=== PATIENT | male | born 1955 | race Caucasian/White ===

== ENCOUNTER 2017-07-25 10:36 | Inpatient (IN) ==
[2017-07-25] MEDS ORDERED: cefTRIAXone 1,000 MG in Water for inj. (sterile) 20 ML 10 ML IVP ONE (10:47)
[2017-07-25] MEDS ORDERED: Ipratropium/Albuterol Neb 3 ML IH ONE (10:47)
[2017-07-25] MEDS ORDERED: methylPREDNISolone 125 MG/2 ML VIAL IVP ONE (10:47)
--- NOTE | 2017-07-25 10:52 | Emergency Department Note ---
Disposition Clinical Impression: Acute exacerbation of chronic obstructive airways disease, COPD exacerbation Non-healing ulcer of lower leg Qualifiers: Laterality: left Non-pressure ulcer stage: unspecified non-pressure ulcer stage Qualified Code(s): L97.929 - Non-pressure chronic ulcer of unspecified part of left lower leg with unspecified severity Community acquired pneumonia Qualifiers: Laterality: left Lung location: unspecified part of lung Qualified Code(s): J18.9 - Pneumonia, unspecified organism Disposition: Admitted As Inpatient Condition: Good Time of Disposition: 11:40 (Dr Rice) SOB HPI - General Chief Complaint: ED Shortness of Breath/Dyspnea Stated Complaint: edgar Time Seen by Provider: 07/25/17 10:46 Source: patient Mode of arrival: EMS Limitations: no limitations Nursing Notes Reviewed: Yes Vital Signs Reviewed: Yes - History of Present Illness Pt Subjective Complaint: shortness of breath Onset (ago): day(s) (2) Context: other (Respiratory shortness of breath with cough for the last 2 days.) Severity: severe Consistency/Duration: gradually worsening Improves with: oxygen, rest Worsens with: exertion, coughing Known history of: COPD Associated symptoms: Reports: cough, wheezing, sputum production. Denies: chest pain, pain with inspiration, fever, orthopnea, lower extremity pain, polyuria, polydipsia, parasthesias, palpitations, hemoptysis, diaphoresis, nausea/vomiting, syncope, abdominal pain, sense of impending doom Treatment prior to arrival: oxygen, bronchodilator Cough present: Yes Cough Description: Involuntary Cough Frequency: Intermittent Sputum Amount: Moderate Sputum Color: Yellow, Blood Streaked - Related Data Home oxygen amount: 4 liters Home Medications Medication Instructions Recorded Confirmed Albuterol Sulfate [Ventolin Hfa] 2 puff IH Q6H PRN 08/09/16 07/25/17 Furosemide [Lasix] 20 mg PO DAILY 12/03/16 07/25/17 Albuterol Neb [AccuNeb] 0.63 mg IH Q6H PRN 12/31/16 07/25/17 Naproxen [EC-Naprosyn] 500 mg PO BID PRN 12/31/16 07/25/17 OxyCODONE/APAP 7.5/325 [Percocet 1 tab PO Q6H PRN 12/31/16 07/25/17 7.5/325 MG] Oxygen 2 l NS AD 12/31/16 07/25/17 Neurontin 600 mg PO TID 01/01/17 07/25/17 Metoprolol [Lopressor] 25 mg PO DAILY 07/25/17 07/25/17 Previous Rx's Medication Instructions Recorded Guaifenesin [Mucinex] 600 mg PO BID #30 tab.er.12h 03/25/17 Mupirocin [Bactroban Oint] 22 appl TP BID #1 tube 05/08/17 Allergies Allergy/AdvReac Type Severity Reaction Status Date / Time latex Allergy Hives Verified 07/25/17 10:36 All systems ED: reviewed and negative except as stated. Past Medical History - Past Medical History Medical history: Reports: non-contributory Surgical history: Reports: orthopedic, other Psychiatric history: Reports: no psych history - Social History Smoking Status: Current every day smoker Smokeless Tobacco Status: No Alcohol use: Reports: none Drug use: Reports: none Physical Exam - General Limitations: no limitations General appearance: alert, in distress - Head Head exam: atraumatic, normocephalic, normal inspection - Eye Eye exam: Present: normal appearance, PERRL, EOMI - ENT ENT exam: normal exam, normal oropharynx, mucous membranes moist - Neck Neck exam: Present: normal inspection, full ROM, trachea midline - Chest Chest inspection: Present: normal inspection, symmetric chest wall rise - Respiratory Respiratory exam: Present: respiratory distress, prolonged expiratory phase - Expanded Respiratory Exam Location: wheezes: Upper, Lower, decreased breath sounds: Upper, Lower - Cardiovascular Cardiovascular exam: Present: regular rate, normal rhythm, normal heart sounds - Abdominal Exam Abdominal exam: Present: soft, Non-Tender. Absent: tenderness, distention, guarding, rebound, rigidity - Extremities Exam Extremities exam: Present: normal inspection, full ROM, normal capillary refill , pedal edema. Absent: tenderness - Expanded Lower Extremity Exam Lower leg exam: Present: erythema, other (Well-demarcated 3 cm ulcer on the left mid lower leg.) - Neurological Exam Neurological exam: Present: alert, oriented X3 - Skin Skin exam: Present: warm, dry, intact, normal color Course - Consultations Consultation #1: Dr Rice Time: 11:46 Vital Signs Temperature 100.9 F H 07/25/17 10:38 Pulse Rate 89 07/25/17 10:38 Respiratory Rate 16 07/25/17 10:38 Blood Pressure 97/57 07/25/17 10:38 O2 Sat by Pulse Oximetry 93 07/25/17 10:38 Temperature 98.4 F 07/25/17 12:53 Pulse Rate 85 07/25/17 12:53 Respiratory Rate 22 07/25/17 12:53 Blood Pressure 96/63 07/25/17 12:53 O2 Sat by Pulse Oximetry 96 07/25/17 12:53 Oxygen Delivery Oxygen Delivery Venti Mask Shortness of Breath/Dyspnea - Differential Diagnosis Likely: acute exacerbation of chronic obstructive airways disease, congestive heart failure, pneumonia - Medical Records Medical records reviewed: Yes I reviewed the patient's medical records. - Lab Data Result diagrams: 07/25/17 10:59 07/25/17 10:59 Lab Results 07/25/17 07/25/17 07/25/17 Range/Units 10:59 10:59 10:59 WBC 35.2 H* (4.3-11.1) K/mcL RBC 5.26 (4.19-5.50) M/mcL Hgb 14.3 (12.9-16.9) g/dL Hct 43.8 (37.5-50.1) % MCV 83.3 (83.0-100.0) fL MCH 27.2 L (28.0-33.3) pg MCHC 32.6 (31.6-35.5) g/dL RDW 13.6 (11.5-14.5) % Plt Count 201 (140-400) K/mcL MPV 10.7 (9.4-12.4) fL Seg Neutrophils % 70.0 % Band Neutrophils % 22.0 H (0-4) % Lymphocytes % 6.0 % Metamyelocytes % 2.0 H (0) % Neutrophils # 32.4 H (1.6-8.9) K/mcL Lymphocytes # 2.1 (0.6-4.6) K/mcL Platelet Estimate Normal (Normal) Sample Site ABG pH (7.32-7.45) pH Units ABG pCO2 (35-45) mmHg ABG pO2 (85-104) mmHg ABG HCO3 (21-27) mEq/L ABG Total CO2 (20-26) mEq/L ABG O2 Saturation (95-98) % ABG Base Excess (-2 to 3) mEq/L Jason Test O2 Delivery Device Inspired O2 (1-15=lpm [id number]=%) Sodium 133 L (136-145) mEq/L Potassium 4.2 (3.5-5.1) mEq/L Chloride 93 L (98-107) mEq/L Carbon Dioxide 32 H (23-29) mEq/L BUN 18 (8-23) mg/dL Creatinine 1.16 (0.70-1.30) mg/dL Est GFR ( Amer) > 60 (> 60) Est GFR (Non-Af Amer) > 60 (> 60) BUN/Creatinine Ratio 16 (6-26) Glucose 154 H (70-105) mg/dL Calculated Osmolality 281 (280-300) Lactic Acid (0.5-2.2) mmol/L Calcium 8.8 (8.6-10.3) mg/dL B-Natriuretic Peptide 108 H (Less than 100) pg/mL 07/25/17 07/25/17 Range/Units 11:00 11:25 WBC (4.3-11.1) K/mcL RBC (4.19-5.50) M/mcL Hgb (12.9-16.9) g/dL Hct (37.5-50.1) % MCV (83.0-100.0) fL MCH (28.0-33.3) pg MCHC (31.6-35.5) g/dL RDW (11.5-14.5) % Plt Count (140-400) K/mcL MPV (9.4-12.4) fL Seg Neutrophils % % Band Neutrophils % (0-4) % Lymphocytes % % Metamyelocytes % (0) % Neutrophils # (1.6-8.9) K/mcL Lymphocytes # (0.6-4.6) K/mcL Platelet Estimate (Normal) Sample Site R Radial ABG pH 7.40 (7.32-7.45) pH Units ABG pCO2 54 H (35-45) mmHg ABG pO2 87 (85-104) mmHg ABG HCO3 33 H (21-27) mEq/L ABG Total CO2 35 H (20-26) mEq/L ABG O2 Saturation 96 (95-98) % ABG Base Excess 6 H (-2 to 3) mEq/L Jason Test Positive O2 Delivery Device Cannula Inspired O2 8.0 (1-15=lpm [id number]=%) Sodium (136-145) mEq/L Potassium (3.5-5.1) mEq/L Chloride (98-107) mEq/L Carbon Dioxide (23-29) mEq/L BUN (8-23) mg/dL Creatinine (0.70-1.30) mg/dL Est GFR ( Amer) (> 60) Est GFR (Non-Af Amer) (> 60) BUN/Creatinine Ratio (6-26) Glucose (70-105) mg/dL Calculated Osmolality (280-300) Lactic Acid 1.8 (0.5-2.2) mmol/L Calcium (8.6-10.3) mg/dL B-Natriuretic Peptide (Less than 100) pg/mL - Radiology Data Chest X-Ray 07/25/17 10:48 IMPRESSION: Small left pleural effusion along with mild patchy/streaky airspace opacities to the left lower lung zone which may relate to atelectasis or infiltrates. Clinical correlation and continued follow-up suggested. D/ / 07/25/2017 11:08:03 Joshua Schultz MD / Elvira Farias Interpreting Provider: Joshua Schultz MD - EKG Data EKG attestation: Yes I reviewed and interpreted this EKG. Rate: Reports: normal Rhythm: Reports: NSR, PVC's [place]/QRS: Reports: normal When compared to previous EKG there are: no significant changes Interpretation: Reports: normal EKG, unchanged when compared to prior tracing ( date) (12/31/16), nonspecific ST-T wave changes Critical Care Time Critical Care Time: Yes Total Critical Care Time: 45 Attestation: Critical care performed: Time is exclusive of separately billable procedures. Time includes: direct patient care, patient reassessment, coordination of patient care, interpretation of data (laboratory data, radiology data, and respiratory data), review of patient's medical records, medical consultation and documentation of patient care. Procedures included in critical care time: Procedures excluded from critical care time:
[2017-07-25] MEDS ORDERED: Acetaminophen 325 MG TABLET PO ONE (10:53)
[2017-07-25 11:12] LABS: Hematocrit 43.8 % (37.5-50.1); Hemoglobin 14.3 g/dL (12.9-16.9); Mean Corpuscular HGB Conc 32.6 g/dL (31.6-35.5); Mean Corpuscular Hemoglobin 27.2 pg (28.0-33.3); Mean Corpuscular Volume 83.3 fL (83.0-100.0); Mean Platelet Volume 10.7 fL (9.4-12.4); Platelet Count 201 K/mcL (140-400); Red Blood Count 5.26 M/mcL (4.19-5.50); Red Cell Distribution Width 13.6 % (11.5-14.5)
[2017-07-25 11:28] LABS: BUN/Creatinine Ratio 16 (6-26); Blood Urea Nitrogen 18 mg/dL (8-23); Calcium 8.8 mg/dL (8.6-10.3); Carbon Dioxide 32 mEq/L (23-29); Chloride 93 mEq/L (98-107); Glucose 154 mg/dL (70-105); Osmolality,Calculated 281 (280-300); Potassium 4.2 mEq/L (3.5-5.1); Sodium 133 mEq/L (136-145); eGFR For African Americans > 60 (> 60); eGFR For Non-African Americans > 60 (> 60)
[2017-07-25 11:29] LABS: ABG Base Excess 6 mEq/L (-2 to 3); ABG HCO3 33 mEq/L (21-27); ABG Oxygen Saturation 96 % (95-98); ABG PCO2 54 mmHg (35-45); ABG PO2 87 mmHg (85-104); ABG TCO2 35 mEq/L (20-26)
[2017-07-25] MEDS ORDERED: Benzonatate 100 MG CAPSULE PO STA (11:36)
[2017-07-25 11:37] LABS: Lymphocytes # 2.1 K/mcL (0.6-4.6); Neutrophils # 32.4 K/mcL (1.6-8.9)
[2017-07-25 11:38] LABS: Platelet Estimate Normal (Normal)
[2017-07-25] MEDS ORDERED: Azithromycin 500 MG in D5% in Water 250 ML IVPB ONE (11:51)
[2017-07-25] MEDS ORDERED: 0.9 % Sodium Chloride 1,000 ML IVC ONE (12:04)
[2017-07-25] MEDS ORDERED: Naloxone 0.4 MG/ML INJ IVP PRN (12:46)
[2017-07-25] MEDS ORDERED: Acetaminophen 325 MG TABLET PO PRN (12:46)
[2017-07-25] MEDS: *HR* OxyCODONE/APAP 7.5/325 TABLET PO PRN ×2 (14:35→21:23)
[2017-07-25] MEDS: Gabapentin 300 MG CAPSULE PO SCH ×2 (14:35→21:18)
[2017-07-25] MEDS: methylPREDNISolone 125 MG/2 ML VIAL IVP SCH (21:43)
[2017-07-26] MEDS: Benzonatate 100 MG CAPSULE PO PRN ×3 (00:07→17:20)
[2017-07-26] MEDS: *HR* OxyCODONE/APAP 7.5/325 TABLET PO PRN ×4 (03:27→22:02)
[2017-07-26] MEDS: Albuterol 2.5 MG/3 ML NEBULIZER IH PRN ×3 (03:43→15:35)
[2017-07-26 07:55] LABS: Hematocrit 39.7 % (37.5-50.1); Hemoglobin 12.8 g/dL (12.9-16.9); Mean Corpuscular HGB Conc 32.2 g/dL (31.6-35.5); Mean Corpuscular Hemoglobin 27.2 pg (28.0-33.3); Mean Corpuscular Volume 84.3 fL (83.0-100.0); Mean Platelet Volume 10.9 fL (9.4-12.4); Platelet Count 180 K/mcL (140-400); Red Blood Count 4.71 M/mcL (4.19-5.50); Red Cell Distribution Width 13.6 % (11.5-14.5)
[2017-07-26] MEDS: Furosemide 20 MG TABLET PO SCH (08:49)
[2017-07-26] MEDS: Gabapentin 300 MG CAPSULE PO SCH ×3 (08:49→20:43)
[2017-07-26] MEDS: methylPREDNISolone 125 MG/2 ML VIAL IVP SCH ×2 (08:49→20:43)
[2017-07-26 10:26] LABS: BUN/Creatinine Ratio 24 (6-26); Blood Urea Nitrogen 31 mg/dL (8-23); Calcium 8.7 mg/dL (8.6-10.3); Carbon Dioxide 30 mEq/L (23-29); Chloride 96 mEq/L (98-107); Glucose 416 mg/dL (70-105); Osmolality,Calculated 300 (280-300); Potassium 4.2 mEq/L (3.5-5.1); Sodium 133 mEq/L (136-145); eGFR For African Americans > 60 (> 60); eGFR For Non-African Americans 55 (> 60)
[2017-07-26] MEDS: cefTRIAXone 1,000 MG in Water for inj. (sterile) 10 ML IVPB SCH (10:38)
[2017-07-26] MEDS: Azithromycin 500 MG in D5% in Water 250 ML IVPB SCH (10:38)
[2017-07-26] MEDS ORDERED: Azithromycin 500 MG in D5% in Water 250 ML IVPB SCH (12:00)
--- NOTE | 2017-07-26 15:50 | Electrocardiograph Report ---
[address] [address] Test Date: 2017-07-25 Pat Name: Trent Sykes Department: [id number] Room: [facility] Gender: M Materials Buyer: [id number] : 1955 Requested By: Thierno Jones Order Number: [id number] Reading MD: Cecy Hubbard Measurements Intervals [place] Rate: 84 P: 54 VA: 171 QRS: 66 QRSD: 105 T: 57 QT: 342 QTc: 382 Interpretive Statements SINUS RHYTHM LOW QRS VOLTAGE IN PRECORDIAL LEADS Electronically Signed On 07-26-2017 15:48:34 EDT by Cecy Hubbard
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
[2017-07-26] MEDS ORDERED: Dextrose Gel 15 GM PO PRN ×2 (18:06)
[2017-07-26] MEDS ORDERED: D5% in Water 1,000 ML IVC PRN (18:06)
[2017-07-26] MEDS ORDERED: *HR* Dextrose 50 % in Water (Syg) 50 ML SYRINGE IVP PRN (18:06)
[2017-07-26] MEDS: Insulin LISPRO 300 UNITS/3 ML VIAL SQ SCH ×2 (20:43→22:03)
[2017-07-26] MEDS ORDERED: Insulin LISPRO 300 UNITS/3 ML VIAL SQ SCH (21:00)
[2017-07-27] MEDS: Benzonatate 100 MG CAPSULE PO PRN (02:23)
[2017-07-27] MEDS: *HR* OxyCODONE/APAP 7.5/325 TABLET PO PRN ×4 (04:03→23:54)
[2017-07-27 07:23] LABS: Hematocrit 38.5 % (37.5-50.1); Hemoglobin 12.3 g/dL (12.9-16.9); Mean Corpuscular HGB Conc 31.9 g/dL (31.6-35.5); Mean Corpuscular Hemoglobin 27.4 pg (28.0-33.3); Mean Corpuscular Volume 85.7 fL (83.0-100.0); Mean Platelet Volume 11.5 fL (9.4-12.4); Platelet Count 201 K/mcL (140-400); Red Blood Count 4.49 M/mcL (4.19-5.50); Red Cell Distribution Width 13.9 % (11.5-14.5)
[2017-07-27] MEDS ORDERED: Insulin LISPRO 300 UNITS/3 ML VIAL SQ SCH (07:30)
[2017-07-27 07:47] LABS: BUN/Creatinine Ratio 34 (6-26); Blood Urea Nitrogen 34 mg/dL (8-23); Calcium 8.7 mg/dL (8.6-10.3); Carbon Dioxide 33 mEq/L (23-29); Chloride 96 mEq/L (98-107); Glucose 304 mg/dL (70-105); Osmolality,Calculated 297 (280-300); Potassium 4.9 mEq/L (3.5-5.1); Sodium 134 mEq/L (136-145); eGFR For African Americans > 60 (> 60); eGFR For Non-African Americans > 60 (> 60)
[2017-07-27] MEDS: Insulin LISPRO 300 UNITS/3 ML VIAL SQ SCH ×4 (08:06→20:11)
[2017-07-27] MEDS: Furosemide 20 MG TABLET PO SCH (08:06)
[2017-07-27] MEDS: Gabapentin 300 MG CAPSULE PO SCH ×3 (08:06→22:22)
[2017-07-27] MEDS: Albuterol 2.5 MG/3 ML NEBULIZER IH PRN ×3 (09:45→19:31)
[2017-07-27 10:32] LABS: Lymphocytes # 1.9 K/mcL (0.6-4.6); Monocytes # 3.1 K/mcL (0.0-1.3); Neutrophils # 26.3 K/mcL (1.6-8.9)
[2017-07-27 10:33] LABS: Dohle Bodies Present (Not Present); Toxic Vacuolation Present (Not Present)
[2017-07-27 10:34] LABS: Toxic Granulation Present (Not Present)
[2017-07-27 10:35] LABS: Hypochromasia Present (Not Present); Polychromasia 1+ (Not Present)
[2017-07-27 10:36] LABS: Platelet Estimate Normal (Normal)
[2017-07-27] MEDS: methylPREDNISolone 125 MG/2 ML VIAL IVP SCH (11:30)
[2017-07-27] MEDS: Azithromycin 500 MG in D5% in Water 250 ML IVPB SCH (11:30)
[2017-07-27] MEDS: cefTRIAXone 1,000 MG in Water for inj. (sterile) 10 ML IVPB SCH (11:30)
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
[2017-07-27 19:56] LABS: ABG Base Excess -4 mEq/L (-2 to 3); ABG HCO3 31 mEq/L (21-27); ABG Oxygen Saturation 91 % (95-98); ABG PCO2 112 mmHg (35-45); ABG PH 7.05 pH Units (7.32-7.45); ABG PO2 91 mmHg (85-104); ABG TCO2 34 mEq/L (20-26)
[2017-07-27 21:01] LABS: ABG Base Excess 1 mEq/L (-2 to 3); ABG HCO3 33 mEq/L (21-27); ABG Oxygen Saturation 97 % (95-98); ABG PCO2 83 mmHg (35-45); ABG PO2 109 mmHg (85-104); ABG TCO2 35 mEq/L (20-26); Blood Gas PEEP 16 cm H2O; Blood Gas Pressure Support 8 cm H2O
[2017-07-27] MEDS: Lactobacillus 1 EACH CAP.SPRINK PO SCH (22:21)
[2017-07-27 22:25] LABS: ABG Base Excess 2 mEq/L (-2 to 3); ABG HCO3 33 mEq/L (21-27); ABG Oxygen Saturation 91 % (95-98); ABG PCO2 81 mmHg (35-45); ABG PH 7.23 pH Units (7.32-7.45); ABG PO2 76 mmHg (85-104); ABG TCO2 36 mEq/L (20-26)
[2017-07-28] MEDS: Albuterol 2.5 MG/3 ML NEBULIZER IH PRN ×5 (02:15→19:38)
[2017-07-28 07:06] LABS: Basophils # 0.1 K/mcL (0.0-0.2); Basophils % 0.3 %; Hematocrit 37.9 % (37.5-50.1); Hemoglobin 11.7 g/dL (12.9-16.9); Immature Granulocytes % 2.5 % (0-4); Lymphocytes # 2.1 K/mcL (0.6-4.6); Lymphocytes % 11.4 %; Mean Corpuscular HGB Conc 30.9 g/dL (31.6-35.5); Mean Corpuscular Hemoglobin 26.9 pg (28.0-33.3); Mean Corpuscular Volume 87.1 fL (83.0-100.0); Mean Platelet Volume 11.1 fL (9.4-12.4); Monocytes % 5.2 %; Platelet Count 174 K/mcL (140-400); Red Blood Count 4.35 M/mcL (4.19-5.50); Red Cell Distribution Width 14.2 % (11.5-14.5); Segmented Neutrophils % 80.6 %
[2017-07-28 07:32] LABS: BUN/Creatinine Ratio 29 (6-26); Blood Urea Nitrogen 32 mg/dL (8-23); Calcium 8.5 mg/dL (8.6-10.3); Carbon Dioxide 37 mEq/L (23-29); Chloride 94 mEq/L (98-107); Glucose 348 mg/dL (70-105); Magnesium 2.3 mg/dL (1.6-2.6); Osmolality,Calculated 297 (280-300); Potassium 5.4 mEq/L (3.5-5.1); Sodium 133 mEq/L (136-145); eGFR For African Americans > 60 (> 60); eGFR For Non-African Americans > 60 (> 60)
[2017-07-28] MEDS: Insulin LISPRO 300 UNITS/3 ML VIAL SQ SCH ×4 (08:26→20:03)
[2017-07-28] MEDS: Furosemide 20 MG TABLET PO SCH (08:26)
[2017-07-28] MEDS: Gabapentin 300 MG CAPSULE PO SCH ×3 (08:27→20:00)
[2017-07-28] MEDS: Lactobacillus 1 EACH CAP.SPRINK PO SCH ×2 (08:27→20:00)
[2017-07-28 09:24] LABS: % Iron Saturation 19 % (20-55); Ferritin 307 ng/ml (20-250); Iron 58 mcg/dL (65-175); Transferrin 215 mg/dL (203-362)
[2017-07-28 09:49] LABS: Estimated Average Glucose 126 mg/dl
[2017-07-28 09:50] LABS: Folate 12.9 ng/mL (3.0-16.0)
[2017-07-28] MEDS: cefTRIAXone 1,000 MG in Water for inj. (sterile) 10 ML IVPB SCH (11:26)
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
[2017-07-28] MEDS: Azithromycin 500 MG in D5% in Water 250 ML IVPB SCH (11:30)
[2017-07-28] MEDS: *HR* OxyCODONE/APAP 7.5/325 TABLET PO PRN ×2 (14:51→22:24)
[2017-07-29] MEDS: *HR* OxyCODONE/APAP 7.5/325 TABLET PO PRN ×4 (04:10→22:34)
[2017-07-29] MEDS: Albuterol 2.5 MG/3 ML NEBULIZER IH PRN ×2 (04:22→22:21)
[2017-07-29 06:19] LABS: Basophils # 0.1 K/mcL (0.0-0.2); Basophils % 0.5 %; Hematocrit 41.3 % (37.5-50.1); Hemoglobin 12.6 g/dL (12.9-16.9); Immature Granulocytes % 3.2 % (0-4); Lymphocytes # 5.5 K/mcL (0.6-4.6); Lymphocytes % 26.2 %; Mean Corpuscular HGB Conc 30.5 g/dL (31.6-35.5); Mean Corpuscular Hemoglobin 27.1 pg (28.0-33.3); Mean Corpuscular Volume 88.8 fL (83.0-100.0); Mean Platelet Volume 10.6 fL (9.4-12.4); Monocytes # 1.7 K/mcL (0.0-1.3); Platelet Count 188 K/mcL (140-400); Red Blood Count 4.65 M/mcL (4.19-5.50); Red Cell Distribution Width 14.6 % (11.5-14.5); Segmented Neutrophils % 62.1 %
[2017-07-29 06:57] LABS: BUN/Creatinine Ratio 30 (6-26); Blood Urea Nitrogen 30 mg/dL (8-23); Calcium 8.9 mg/dL (8.6-10.3); Carbon Dioxide 40 mEq/L (23-29); Chloride 97 mEq/L (98-107); Glucose 198 mg/dL (70-105); Osmolality,Calculated 304 (280-300); Potassium 4.3 mEq/L (3.5-5.1); Sodium 141 mEq/L (136-145); eGFR For African Americans > 60 (> 60); eGFR For Non-African Americans > 60 (> 60)
[2017-07-29] MEDS: Lactobacillus 1 EACH CAP.SPRINK PO SCH ×2 (08:22→20:44)
[2017-07-29] MEDS: Cholecalciferol (D-3) 1,000 UNIT TABLET PO SCH (08:22)
[2017-07-29] MEDS: Gabapentin 300 MG CAPSULE PO SCH ×3 (08:22→20:43)
[2017-07-29] MEDS: Furosemide 20 MG TABLET PO SCH (08:23)
[2017-07-29] MEDS: Insulin LISPRO 300 UNITS/3 ML VIAL SQ SCH ×4 (08:23→22:31)
[2017-07-29] MEDS: *HR* Metformin 500 MG TABLET PO SCH ×2 (08:25→17:05)
[2017-07-29] MEDS: cefTRIAXone 1,000 MG in Water for inj. (sterile) 10 ML IVPB SCH (10:23)
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
[2017-07-29] MEDS ORDERED: Piperacillin/Tazobactam 3.375 GM in 0.9 % Sodium Chloride Mini Bag 100 ML IVPB SCH (16:00)
[2017-07-29] MEDS: Doxycycline 100 MG in 0.9 % Sodium Chloride Mini Bag 100 ML IVPB SCH (17:06)
[2017-07-29] MEDS: Piperacillin/Tazobactam 3.375 GM in 0.9 % Sodium Chloride Mini Bag 100 ML IVPB SCH (18:23)
[2017-07-30] MEDS: Piperacillin/Tazobactam 3.375 GM in 0.9 % Sodium Chloride Mini Bag 100 ML IVPB SCH ×2 (01:46→11:56)
[2017-07-30] MEDS: Doxycycline 100 MG in 0.9 % Sodium Chloride Mini Bag 100 ML IVPB SCH (06:13)
[2017-07-30 06:33] LABS: Basophils # 0.1 K/mcL (0.0-0.2); Basophils % 0.4 %; Eosinophils # 0.1 K/mcL (0.0-0.6); Eosinophils % 0.6 %; Hematocrit 39.8 % (37.5-50.1); Hemoglobin 12.6 g/dL (12.9-16.9); Immature Granulocytes % 3.9 % (0-4); Lymphocytes # 1.7 K/mcL (0.6-4.6); Lymphocytes % 12.2 %; Mean Corpuscular HGB Conc 31.7 g/dL (31.6-35.5); Mean Corpuscular Hemoglobin 27.4 pg (28.0-33.3); Mean Corpuscular Volume 86.5 fL (83.0-100.0); Mean Platelet Volume 10.8 fL (9.4-12.4); Monocytes # 0.8 K/mcL (0.0-1.3); Monocytes % 5.8 %; Neutrophils # 10.7 K/mcL (1.6-8.9); Platelet Count 177 K/mcL (140-400); Red Cell Distribution Width 14.1 % (11.5-14.5); Segmented Neutrophils % 77.1 %
[2017-07-30 07:04] LABS: BUN/Creatinine Ratio 26 (6-26); Blood Urea Nitrogen 23 mg/dL (8-23); Calcium 8.8 mg/dL (8.6-10.3); Carbon Dioxide 43 mEq/L (23-29); Chloride 92 mEq/L (98-107); Glucose 179 mg/dL (70-105); Osmolality,Calculated 294 (280-300); Potassium 4.3 mEq/L (3.5-5.1); Sodium 138 mEq/L (136-145); eGFR For African Americans > 60 (> 60); eGFR For Non-African Americans > 60 (> 60)
[2017-07-30] MEDS: Lactobacillus 1 EACH CAP.SPRINK PO SCH ×2 (07:44)
[2017-07-30] MEDS: Cholecalciferol (D-3) 1,000 UNIT TABLET PO SCH (07:44)
[2017-07-30] MEDS: Gabapentin 300 MG CAPSULE PO SCH (07:45)
[2017-07-30] MEDS: Insulin LISPRO 300 UNITS/3 ML VIAL SQ SCH ×2 (07:45→11:55)
[2017-07-30] MEDS: Furosemide 20 MG TABLET PO SCH (07:45)
[2017-07-30] MEDS: *HR* Metformin 500 MG TABLET PO SCH (07:45)
[2017-07-30] MEDS: *HR* OxyCODONE/APAP 7.5/325 TABLET PO PRN (08:00)
[2017-07-30] MEDS: Albuterol 2.5 MG/3 ML NEBULIZER IH PRN (08:37)
[2017-07-30] MEDS ORDERED: Ondansetron 4 MG/2 ML VIAL IVP PRN (09:06)
[2017-07-30] MEDS ORDERED: Ondansetron 4 MG/2 ML VIAL IVP ONE (09:06)
[2017-07-30 11:26] VITALS: BP 116/74
--- NOTE | 2017-07-30 13:56 | Discharge Summary ---
Orders not resulted at time of discharge: Pending orders 07/25/17 17:00 Culture,Anaerobic [RM] Routine 07/26/17 18:05 US breast LT [US] Routine 07/27/17 18:00 CT LE LT wo con [CT] Routine 07/28/17 06:53 Zinc AM 0400 07/29/17 14:15 CT 3D reconstruction [CT] Routine Date of Encounter: 07/30/17 Time of Encounter: 10:00 - Discharge Diagnosis (1) Pneumonia Priority: Primary Status: Acute Qualifiers: Pneumonia type: due to unspecified organism Laterality: bilateral Lung location: unspecified part of lung Qualified Code(s): J18.9 - Pneumonia, unspecified organism (2) Osteomyelitis of left tibia Priority: Secondary Status: Chronic Qualifiers: Osteomyelitis type: chronic, with draining sinus Qualified Code(s): M86.462 - Chronic osteomyelitis with draining sinus, left tibia and fibula (3) Anemia Priority: Secondary Status: Acute Qualifiers: Anemia type: unspecified type Qualified Code(s): D64.9 - Anemia, unspecified (4) Diastolic heart failure Priority: Secondary Status: Chronic Qualifiers: Heart failure chronicity: chronic Qualified Code(s): I50.32 - Chronic diastolic (congestive) heart failure (5) Non-healing ulcer of lower leg Priority: Secondary Status: Chronic Qualifiers: Laterality: left Non-pressure ulcer stage: unspecified non-pressure ulcer stage Qualified Code(s): L97.929 - Non-pressure chronic ulcer of unspecified part of left lower leg with unspecified severity (6) Diabetes mellitus Priority: Secondary Status: Chronic Qualifiers: Diabetes mellitus type: type 2 Diabetes mellitus technician terminal and repeater insulin use: without technician terminal and repeater use Diabetes mellitus complication status: without complication Qualified Code(s): E11.9 - Type 2 diabetes mellitus without complications (7) Obstructive sleep apnea on CPAP Priority: Secondary Status: Chronic (8) Vitamin D deficiency Priority: Secondary Status: Chronic Hospital course: Mr. Sykes is a 61 year old male who presented with dyspnea which had onset 2-3 days earlier. He reports he has had hemoptysis after coming to emergency room. His respiratory history is significant for having smoked from age [age] a total of 45 years up to 2.5 packs per day. He had PFTs at [facility] 10/31/2016 which showed FEV1/FVC of 62%. The FVC was 36% prebronchodilator with improvement to 40% postbronchodilator with absolute increase of 0.19 L/12%. MVV was 26%. He has history of REI and uses CPAP with oxygen at bedtime. He wears oxygen during the daytime but does not wear 24/7 as prescribed stating he has been trying to "when himself off". Initial orders were written by the emergency room physician. Dr. Rice saw him on July 26 and performed a history and physical. I assumed care on July 27. A chest CT was done to further evaluate dyspnea. There were bilateral infiltrates present. He was initially placed on Rocephin and Zithromax but I changed him to Zosyn and doxycycline on July 29. There was significant improvement in WBC overnight to 13.9. His dyspnea clinically improved also. He will continue this regimen upon transfer. Azotemia improved with BUN and creatinine normalized to 23 and 0.7 respectively by day of transfer. Anemia testing showed iron 58, transferrin saturation 19, transferrin 215, ferritin 307, B12 455, and folate 12.9. Hemoglobin improved to 12.6 by day of transfer. Vitamin D level returned low at 20. He was started on supplemental vitamin D. Left leg CT was done to further evaluate for osteomyelitis. Findings were compatible with underlying focal osteomyelitis of the mid tibia. I spoke with patient about this finding and recommended he be seen by orthopedist and/or ID for definitive treatment plan. I told him he would likely need 6 weeks of IV antibiotics and that perhaps he could return to [facility] swing bed for this therapy. On July 30 he was accepted and transferred to [facility] for ongoing care needs. - Time Spent with Patient Total time spent providing and/or coordinating discharge services: - Discharge Medications Home Medications: Albuterol Sulfate [Ventolin Hfa] 2 puff IH Q6H PRN 08/09/16 [History] Furosemide [Lasix] 20 mg PO DAILY 12/03/16 [History] Albuterol Neb [AccuNeb] 0.63 mg IH Q6H PRN 12/31/16 [History] Naproxen [EC-Naprosyn] 500 mg PO BID PRN 12/31/16 [History] OxyCODONE/APAP 7.5/325 [Percocet 7.5/325 MG] 1 tab PO Q6H PRN 12/31/16 [History] Oxygen 2 l NS AD 12/31/16 [History] Neurontin 600 mg PO TID 01/01/17 [History] Guaifenesin [Mucinex] 600 mg PO BID #30 tab.er.12h 03/25/17 [Rx] Mupirocin [Bactroban Oint] 22 appl TP BID #1 tube 05/08/17 [Rx] Metoprolol [Lopressor] 25 mg PO DAILY 07/25/17 [History] Allergies/Adverse Reactions: 3 Allergy/AdvReac Type Severity Reaction Status Date / Time latex Allergy Hives Verified 07/25/17 10:36 Date of admission: 07/25/17 12:46 Primary care physician: Denise Gallagher DO Consults: 07/25/17 13:35 Consult to Phlebotomy Lab Assistant [CONS] Routine Reason for SW Consult: homes services needed at discharge 07/26/17 17:57 Consult to Speech Therapy [CONS] Routine Comment: Evaluate, develop and implement POC Reason for Consult: Reported dysphasia per patient Call Completed: No 07/28/17 10:28 Consult to Occupational Therapy [CONS] Routine Comment: Evaluate, develop and implement POC Reason for Consult: Weakness Does patient have active BEDREST order?: No Is patient medically & hemodynamically stable?: Yes Patient assessed for mobility or mobilized this visit?: Yes Consult to Physical Therapy [CONS] Routine Comment: Evaluate, develop and implement POC Reason for Consult: Weakness Does patient have active BEDREST order?: No Is patient medically & hemodynamically stable?: Yes Patient assessed for mobility or mobilized this visit?: Yes - Constitutional Vitals: Temp Pulse Resp BP Pulse Ox 98.0 F 90 16 116/74 97 07/30/17 11:24 07/30/17 11:24 07/30/17 11:24 07/30/17 11:24 07/30/17 11:24 General appearance: Present: mild distress, obese - Patient Status Disposition: Transfer Other Condition: Good - Discharge Instructions Follow Up With: Denise Gallagher DO [Primary Care Provider] - 1 week
== END 2017-07-30 14:34 | disposition short-term general hospital (02) | DRG 190 ==
LOC: EMEROOPIK 10:36 → INPPIK 10:36
PROVIDERS: ADMIT Family Medicine; ATTEND Family Medicine

== ENCOUNTER 2020-12-23 16:14 | Inpatient (IN) ==
[2020-12-23] MEDS ORDERED: 0.9 % Sodium Chloride 1,000 ML IVC ONE (16:29)
[2020-12-23 17:02] LABS: Basophils % 0.2 %; Eosinophils # 0.1 K/mcL (0.0-0.6); Eosinophils % 0.8 %; Hematocrit 41.4 % (37.5-50.1); Hemoglobin 12.2 g/dL (12.9-16.9); Immature Granulocytes % 0.3 % (0-4); Lymphocytes # 2.7 K/mcL (0.6-4.6); Lymphocytes % 30.8 %; Mean Corpuscular HGB Conc 29.5 g/dL (31.6-35.5); Mean Corpuscular Hemoglobin 27.4 pg (28.0-33.3); Mean Platelet Volume 10.5 fL (9.4-12.4); Monocytes # 0.8 K/mcL (0.0-1.3); Monocytes % 8.7 %; Neutrophils # 5.2 K/mcL (1.6-8.9); Platelet Count 167 K/mcL (140-400); Red Blood Count 4.45 M/mcL (4.19-5.50); Red Cell Distribution Width 15.1 % (11.5-14.5); Segmented Neutrophils % 59.2 %; White Blood Count 8.7 K/mcL (4.3-11.1)
[2020-12-23 17:16] LABS: Alanine Aminotransferase 25 Units/L (7-52); Albumin 3.4 g/dL (3.5-5.7); Albumin/Globulin Ratio 1.3 (1.1-2.2); Alkaline Phosphatase 57 Units/L (34-104); Aspartate Amino Transferase 22 Units/L (13-39); Bilirubin,Direct 0.1 mg/dL (0.0-0.2); Bilirubin,Indirect 0.2 mg/dL (0.0-1.0); Bilirubin,Total 0.3 mg/dL (0.3-1.0); Ethanol < 10 mg/dL (Less than 10); Globulin 2.6 g/dL (2.4-3.5)
[2020-12-23 17:20] LABS: ABG Base Excess 13 mEq/L (-2 to 3); ABG HCO3 45 mEq/L (21-27); ABG Oxygen Saturation 78 % (95-98); ABG PCO2 98 mmHg (35-45); ABG PH 7.27 pH Units (7.32-7.45); ABG PO2 53 mmHg (85-104); ABG TCO2 48 mEq/L (20-26)
[2020-12-23 17:20] LABS: BUN/Creatinine Ratio 13 (6-26); Blood Urea Nitrogen 9 mg/dL (8-23); Carbon Dioxide 44 mEq/L (23-29); Chloride 94 mEq/L (98-107); Glucose 103 mg/dL (70-105); Osmolality,Calculated 283 (280-300); Potassium 4.2 mEq/L (3.5-5.1); Sodium 137 mEq/L (136-145); Troponin I < 0.03 ng/mL (< 0.04); eGFR For African Americans > 60 (> 60); eGFR For Non-African Americans > 60 (> 60)
[2020-12-23] MEDS ORDERED: methylPREDNISolone 125 MG/2 ML VIAL IVP ONE (17:44)
[2020-12-23] MEDS ORDERED: Ipratropium/Albuterol Neb 3 ML IH ONE (17:46)
[2020-12-23] MEDS ORDERED: levoFLOXacin 750 MG/150 ML 750 MG/150 ML BAG IVPB ONE (17:46)
[2020-12-23] MEDS ORDERED: Ondansetron 4 MG/2 ML VIAL IVP PRN (17:59)
[2020-12-23] MEDS ORDERED: Naloxone 0.4 MG/ML INJ IVP PRN (17:59)
[2020-12-23] MEDS ORDERED: Isovue-370 500 ML BOTTLE IVP ONE (18:07)
[2020-12-23] MEDS ORDERED: D5% in Water 1,000 ML IVC PRN (18:19)
[2020-12-23] MEDS ORDERED: Dextrose Gel 15 GM/37.5 ML TUBE PO PRN ×2 (18:19)
[2020-12-23] MEDS ORDERED: *HR* Dextrose 50 % in Water (Vial) 50 ML VIAL IVP PRN (18:19)
[2020-12-23 18:32] LABS: ABG Base Excess 12 mEq/L (-2 to 3); ABG HCO3 42 mEq/L (21-27); ABG Oxygen Saturation 82 % (95-98); ABG PCO2 89 mmHg (35-45); ABG PH 7.29 pH Units (7.32-7.45); ABG PO2 55 mmHg (85-104); ABG TCO2 45 mEq/L (20-26); Blood Gas Modality BiLevel
[2020-12-23] MEDS: *HR* Heparin 5,000 UNIT/ML VIAL SQ SCH (20:31)
[2020-12-23] MEDS: Insulin LISPRO 300 UNITS/3 ML VIAL SUBQ SCH (20:36)
[2020-12-23] MEDS: Acetaminophen 325 MG TABLET PO PRN (20:51)
[2020-12-23 21:13] LABS: Bilirubin,Urine Negative (Negative); Blood,Urine Negative (Negative); Clarity,Urine Clear (Clear); Color,Urine Yellow (Yellow); Glucose,Urine (UA) 100 mg/dL (Normal); Ketones,Urine Negative (Negative); Leukocyte Esterase,Urine Negative (Negative); Nitrite,Urine Negative (Negative); Protein,Urine Negative (Neg-Trace); Specific Gravity,Urine 1.015 (1.010-1.025); Urobilinogen,Urine Normal (Normal)
[2020-12-23 21:22] LABS: Mucus,Urine Few per lpf (None-Few); RBC,Urine 0-3 per hpf (0-3)
[2020-12-23 21:23] LABS: Bacteria,Urine Few per hpf (None-Few); Squamous Epithelial Cell,Urine Few per hpf (None-Few); WBC,Urine 0-3 per hpf (0-3)
[2020-12-23 21:28] LABS: Amphetamine Screen,Urine Negative ng/mL (Cutoff=1000); Barbiturate Screen,Urine Negative ng/mL (Cutoff=200); Benzodiazepines Screen,Urine Negative ng/mL (Cutoff=200); Cannabinoid Screen,Urine Negative ng/mL (Cutoff = 50); Cocaine Screen,Urine Negative ng/mL (Cutoff= 300); Opiate Screen,Urine Negative ng/mL (Cutoff=300); Phencyclidine Screen,Urine Negative ng/mL (Cutoff=25)
[2020-12-23] MEDS: methylPREDNISolone 125 MG/2 ML VIAL IVP SCH (23:47)
[2020-12-24 00:35] LABS: ABG Base Excess 10 mEq/L (-2 to 3); ABG HCO3 40 mEq/L (21-27); ABG Oxygen Saturation 88 % (95-98); ABG PCO2 84 mmHg (35-45); ABG PH 7.29 pH Units (7.32-7.45); ABG PO2 65 mmHg (85-104); ABG TCO2 43 mEq/L (20-26); Blood Gas Modality BIVENT; Blood Gas Pressure Support 8 cm H2O
[2020-12-24] MEDS: *HR* Heparin 5,000 UNIT/ML VIAL SQ SCH (04:36)
[2020-12-24 04:44] LABS: ABG Base Excess 10 mEq/L (-2 to 3); ABG HCO3 39 mEq/L (21-27); ABG Oxygen Saturation 81 % (95-98); ABG PCO2 74 mmHg (35-45); ABG PH 7.33 pH Units (7.32-7.45); ABG PO2 51 mmHg (85-104); ABG TCO2 42 mEq/L (20-26); Blood Gas Pressure Support 8 cm H2O
[2020-12-24 07:23] LABS: Hematocrit 39.8 % (37.5-50.1); Hemoglobin 11.7 g/dL (12.9-16.9); Immature Granulocytes % 0.5 % (0-4); Lymphocytes # 0.8 K/mcL (0.6-4.6); Mean Corpuscular HGB Conc 29.4 g/dL (31.6-35.5); Mean Corpuscular Volume 91.9 fL (83.0-100.0); Mean Platelet Volume 10.5 fL (9.4-12.4); Monocytes # 0.1 K/mcL (0.0-1.3); Monocytes % 2.2 %; Platelet Count 141 K/mcL (140-400); Red Blood Count 4.33 M/mcL (4.19-5.50); Red Cell Distribution Width 15.2 % (11.5-14.5); Segmented Neutrophils % 77.3 %; White Blood Count 4.2 K/mcL (4.3-11.1)
[2020-12-24 07:24] LABS: Neutrophils # 3.3 K/mcL (1.6-8.9)
[2020-12-24 08:13] LABS: BUN/Creatinine Ratio 16 (6-26); Blood Urea Nitrogen 11 mg/dL (8-23); Calcium 8.1 mg/dL (8.6-10.3); Carbon Dioxide 42 mEq/L (23-29); Chloride 95 mEq/L (98-107); Glucose 247 mg/dL (70-105); Osmolality,Calculated 292 (280-300); Potassium 4.6 mEq/L (3.5-5.1); Sodium 137 mEq/L (136-145); eGFR For African Americans > 60 (> 60); eGFR For Non-African Americans > 60 (> 60)
[2020-12-24] MEDS: Insulin LISPRO 300 UNITS/3 ML VIAL SUBQ SCH ×4 (08:15→21:24)
[2020-12-24] MEDS: methylPREDNISolone 125 MG/2 ML VIAL IVP SCH ×2 (08:15→17:32)
[2020-12-24] MEDS ORDERED: Ipratropium/Albuterol Neb 3 ML IH PRN (10:38)
[2020-12-24] MEDS: Budesonide/Formoterol 160/4.5 1 PUFF INH IH SCH ×2 (11:42→21:32)
[2020-12-24] MEDS: acetaZOLAMIDE 250 MG TABLET PO SCH ×2 (13:29→21:26)
[2020-12-24] MEDS: Apixaban 5 MG TABLET PO SCH ×2 (13:29→21:27)
[2020-12-24] MEDS: Furosemide 40 MG TABLET PO SCH ×2 (13:29→17:27)
[2020-12-24] MEDS: levoFLOXacin 750 MG/150 ML 750 MG/150 ML BAG IVPB SCH (17:32)
[2020-12-24] MEDS ORDERED: levoFLOXacin 750 MG/150 ML 750 MG/150 ML BAG IVPB ONE (17:46)
[2020-12-25] MEDS: methylPREDNISolone 125 MG/2 ML VIAL IVP SCH ×2 (00:19→08:28)
[2020-12-25 07:54] LABS: Hematocrit 41.1 % (37.5-50.1); Hemoglobin 12.5 g/dL (12.9-16.9); Mean Corpuscular HGB Conc 30.4 g/dL (31.6-35.5); Mean Corpuscular Hemoglobin 27.8 pg (28.0-33.3); Mean Corpuscular Volume 91.3 fL (83.0-100.0); Mean Platelet Volume 10.7 fL (9.4-12.4); Platelet Count 176 K/mcL (140-400); Red Cell Distribution Width 15.5 % (11.5-14.5); White Blood Count 12.7 K/mcL (4.3-11.1)
[2020-12-25] MEDS: Acetaminophen 325 MG TABLET PO PRN (08:27)
[2020-12-25] MEDS: Apixaban 5 MG TABLET PO SCH ×2 (08:28→21:04)
[2020-12-25] MEDS: Furosemide 40 MG TABLET PO SCH ×2 (08:28→18:05)
[2020-12-25] MEDS: acetaZOLAMIDE 250 MG TABLET PO SCH ×2 (08:28→21:04)
[2020-12-25] MEDS: Insulin LISPRO 300 UNITS/3 ML VIAL SUBQ SCH ×4 (08:29→22:05)
[2020-12-25 08:38] LABS: BUN/Creatinine Ratio 27 (6-26); Blood Urea Nitrogen 21 mg/dL (8-23); Calcium 8.6 mg/dL (8.6-10.3); Carbon Dioxide 30 mEq/L (23-29); Chloride 103 mEq/L (98-107); Glucose 228 mg/dL (70-105); Osmolality,Calculated 294 (280-300); Potassium 4.5 mEq/L (3.5-5.1); Sodium 137 mEq/L (136-145); eGFR For African Americans > 60 (> 60); eGFR For Non-African Americans > 60 (> 60)
[2020-12-25] MEDS: Budesonide/Formoterol 160/4.5 1 PUFF INH IH SCH ×2 (10:24→21:57)
[2020-12-25] MEDS: levoFLOXacin 750 MG/150 ML 750 MG/150 ML BAG IVPB SCH (18:05)
[2020-12-26] MEDS: Furosemide 40 MG TABLET PO SCH (08:03)
[2020-12-26] MEDS: Apixaban 5 MG TABLET PO SCH (08:03)
[2020-12-26] MEDS: acetaZOLAMIDE 250 MG TABLET PO SCH (08:03)
[2020-12-26] MEDS: Insulin LISPRO 300 UNITS/3 ML VIAL SUBQ SCH ×2 (08:03→11:58)
[2020-12-26 08:09] LABS: Hematocrit 44.7 % (37.5-50.1); Hemoglobin 13.8 g/dL (12.9-16.9); Mean Corpuscular HGB Conc 30.9 g/dL (31.6-35.5); Mean Corpuscular Hemoglobin 27.6 pg (28.0-33.3); Mean Corpuscular Volume 89.4 fL (83.0-100.0); Mean Platelet Volume 10.8 fL (9.4-12.4); Platelet Count 194 K/mcL (140-400); White Blood Count 13.7 K/mcL (4.3-11.1)
[2020-12-26 08:17] LABS: BUN/Creatinine Ratio 26 (6-26); Blood Urea Nitrogen 24 mg/dL (8-23); Calcium 8.6 mg/dL (8.6-10.3); Carbon Dioxide 34 mEq/L (23-29); Chloride 100 mEq/L (98-107); Glucose 125 mg/dL (70-105); Osmolality,Calculated 292 (280-300); Potassium 3.9 mEq/L (3.5-5.1); Sodium 138 mEq/L (136-145); eGFR For African Americans > 60 (> 60); eGFR For Non-African Americans > 60 (> 60)
[2020-12-26 08:20] VITALS: BP 148/68; PULSE 83; TEMP 98.5
[2020-12-26] MEDS ORDERED: predniSONE 20 MG TABLET PO SCH (09:00)
[2020-12-26] MEDS: Budesonide/Formoterol 160/4.5 1 PUFF INH IH SCH (10:02)
[2020-12-26 10:07] VITALS: RESP 18; O2SAT 96
== END 2020-12-26 13:15 | disposition home or self-care (01) | DRG 190 ==
LOC: EMEROOPIK 16:14 → INPPIK 16:14
PROVIDERS: ADMIT Family Medicine; ATTEND Family Medicine

== ENCOUNTER 2021-07-27 16:10 | Inpatient (IN) ==
[2021-07-27] MEDS ORDERED: Dextrose 4 GM Chewable Tablets PO PRN ×2 (18:28)
[2021-07-27] MEDS ORDERED: D5% in Water 1,000 ML IVC PRN (18:28)
[2021-07-27] MEDS ORDERED: *HR* Dextrose 50 % in Water (Syg) 50 ML SYRINGE IVP PRN (18:28)
[2021-07-27] MEDS ORDERED: Ondansetron ODT 4 MG TAB.RAPDIS SL PRN (18:30)
[2021-07-27] MEDS ORDERED: Insulin DETEMIR 100 UNIT/ML per UNIT SUBQ ONE (21:00)
[2021-07-27] MEDS: Gabapentin 300 MG CAPSULE PO SCH (21:54)
[2021-07-27] MEDS: Apixaban 5 MG TABLET PO SCH (21:54)
[2021-07-27] MEDS: Insulin LISPRO 300 UNITS/3 ML VIAL SUBQ SCH (22:01)
[2021-07-27] MEDS: Budesonide/Formoterol 80/4.5 1 PUFF INH IH SCH (22:50)
[2021-07-28 08:08] LABS: Basophils % 0.3 %; Eosinophils # 0.1 K/mcL (0.0-0.6); Eosinophils % 1.1 %; Hematocrit 46.3 % (37.5-50.1); Hemoglobin 14.2 g/dL (12.9-16.9); Immature Granulocytes % 0.9 % (0-4); Lymphocytes # 3.8 K/mcL (0.6-4.6); Lymphocytes % 33.5 %; Mean Corpuscular HGB Conc 30.7 g/dL (31.6-35.5); Mean Corpuscular Hemoglobin 26.7 pg (28.0-33.3); Mean Corpuscular Volume 87.2 fL (83.0-100.0); Mean Platelet Volume 11.4 fL (9.4-12.4); Monocytes # 0.4 K/mcL (0.0-1.3); Monocytes % 3.7 %; Neutrophils # 6.8 K/mcL (1.6-8.9); Platelet Count 214 K/mcL (140-400); Red Blood Count 5.31 M/mcL (4.19-5.50); Red Cell Distribution Width 16.3 % (11.5-14.5); Segmented Neutrophils % 60.5 %; White Blood Count 11.3 K/mcL (4.3-11.1)
[2021-07-28 09:02] LABS: BUN/Creatinine Ratio 36 (6-26); Blood Urea Nitrogen 22 mg/dL (8-23); Calcium 8.6 mg/dL (8.6-10.3); Carbon Dioxide 43 mEq/L (23-29); Chloride 93 mEq/L (98-107); Glucose 101 mg/dL (70-105); Osmolality,Calculated 289 (280-300); Potassium 4.5 mEq/L (3.5-5.1); Sodium 138 mEq/L (136-145); eGFR For African Americans > 60 (> 60); eGFR For Non-African Americans > 60 (> 60)
[2021-07-28] MEDS: Gabapentin 300 MG CAPSULE PO SCH ×3 (09:04→21:18)
[2021-07-28] MEDS: Acetaminophen 325 MG TABLET PO PRN (09:04)
[2021-07-28] MEDS: *HR* Metformin 500 MG TABLET PO SCH ×2 (09:04→16:53)
[2021-07-28] MEDS: Furosemide 40 MG TABLET PO SCH ×2 (09:04→16:53)
[2021-07-28] MEDS: Apixaban 5 MG TABLET PO SCH ×2 (09:04→21:18)
[2021-07-28] MEDS: predniSONE 20 MG TABLET PO SCH (09:05)
[2021-07-28] MEDS: Insulin LISPRO 300 UNITS/3 ML VIAL SUBQ SCH ×4 (09:06→20:25)
[2021-07-28] MEDS: Budesonide/Formoterol 80/4.5 1 PUFF INH IH SCH ×2 (09:18→21:52)
[2021-07-28] MEDS: Nicotine 21 MG PATCH.TD24 TD SCH (13:10)
[2021-07-28] MEDS: Insulin DETEMIR 100 UNIT/ML X5UNITS SUBQ SCH (21:26)
[2021-07-29] MEDS: Insulin LISPRO 300 UNITS/3 ML VIAL SUBQ SCH ×4 (07:49→19:59)
[2021-07-29] MEDS: predniSONE 20 MG TABLET PO SCH (07:54)
[2021-07-29] MEDS: Apixaban 5 MG TABLET PO SCH ×2 (07:54→20:13)
[2021-07-29] MEDS: *HR* Metformin 500 MG TABLET PO SCH ×2 (07:54→17:10)
[2021-07-29] MEDS: Nicotine 21 MG PATCH.TD24 TD SCH (07:54)
[2021-07-29] MEDS: Furosemide 40 MG TABLET PO SCH ×2 (07:54→17:10)
[2021-07-29] MEDS: Gabapentin 300 MG CAPSULE PO SCH ×3 (07:55→20:12)
[2021-07-29] MEDS ORDERED: acetaZOLAMIDE 250 MG TABLET PO SCH (09:00)
[2021-07-29] MEDS: Budesonide/Formoterol 80/4.5 1 PUFF INH IH SCH ×2 (11:22→22:07)
[2021-07-29] MEDS: Acetaminophen 325 MG TABLET PO PRN (20:13)
[2021-07-29] MEDS: Insulin DETEMIR 100 UNIT/ML X5UNITS SUBQ SCH (20:23)
[2021-07-30] MEDS: Acetaminophen 325 MG TABLET PO PRN (05:42)
[2021-07-30 07:38] VITALS: BP 119/72; PULSE 88; TEMP 97.6
[2021-07-30] MEDS: Insulin LISPRO 300 UNITS/3 ML VIAL SUBQ SCH ×2 (08:26→11:39)
[2021-07-30] MEDS: Nicotine 21 MG PATCH.TD24 TD SCH (08:27)
[2021-07-30] MEDS: predniSONE 20 MG TABLET PO SCH (08:28)
[2021-07-30] MEDS: *HR* Metformin 500 MG TABLET PO SCH (08:28)
[2021-07-30] MEDS: Furosemide 40 MG TABLET PO SCH (08:29)
[2021-07-30] MEDS: Apixaban 5 MG TABLET PO SCH (08:29)
[2021-07-30] MEDS: Gabapentin 300 MG CAPSULE PO SCH (08:29)
[2021-07-30 08:50] LABS: BUN/Creatinine Ratio 36 (6-26); Blood Urea Nitrogen 28 mg/dL (8-23); Calcium 8.2 mg/dL (8.6-10.3); Carbon Dioxide 42 mEq/L (23-29); Chloride 94 mEq/L (98-107); Glucose 162 mg/dL (70-105); Osmolality,Calculated 291 (280-300); Potassium 3.9 mEq/L (3.5-5.1); Sodium 136 mEq/L (136-145); eGFR For African Americans > 60 (> 60); eGFR For Non-African Americans > 60 (> 60)
[2021-07-30] MEDS: Budesonide/Formoterol 80/4.5 1 PUFF INH IH SCH (10:07)
[2021-07-30 10:59] VITALS: RESP 20; O2SAT 90
== END 2021-07-30 13:57 | disposition home or self-care (01) | DRG 193 ==
LOC: INPPIK 20:37
PROVIDERS: ADMIT Internal Medicine; ATTEND Internal Medicine